=== PATIENT | male | born 2000 | race Caucasian/White ===

== ENCOUNTER 2022-03-19 20:57 | Emergency (ER) | payer BC ==
[2022-03-19 21:48] LABS: HEMOGLOBIN 15.2 gm/dl (14.0-17.5); RED BLOOD COUNT 4.97 M/UL (4.20-5.50); WHITE BLOOD COUNT 8.8 K/UL (4.5-11.0)
[2022-03-19 22:12] LABS: BUN/CREATININE RATIO 12 (0-10)
[2022-03-19] MEDS ORDERED: FLOMAX0.4 MG PO (23:48)
[2022-03-21 22:12] LABS: CHLAMYDIA TRACHOMATIS, NAA Negative (Negative); NEISSERIA GONORRHOEAE, NAA Negative (Negative)
== END 2022-03-19 23:55 | disposition home or self-care (01) ==
LOC: ER1 20:57
PROVIDERS: Physician Assistant Medical
DX: R30.0 Dysuria (principal)
CPT/HCPCS: 80053; 81001; 85025; 99283